=== PATIENT | female | born 1970 | race Two or more races ===

== ENCOUNTER 2019-04-26 17:34 | Emergency (ER) | payer OTHER ==
[~2019-04-26] VITALS: Ht 167.6 cm; Wt 59.9 kg
[~2019-04-26 17:34] MED LIST: IBUPROFEN800 MG PO; ORPH100T PO
[2019-04-26] MEDS ORDERED: LEVSIN/SL0.125 MG SL (22:21)
[2019-04-26] MEDS ORDERED: PEPCID AC20 MG PO (22:21)
== END 2019-04-26 22:50 | disposition home or self-care (01) ==
LOC: ER 17:34
DX: K29.70 Gastritis, unspecified, without bleeding (principal); R10.11 Right upper quadrant pain

== ENCOUNTER 2019-05-07 07:18 | Outpatient (CLI) | payer OTHER ==
[~2019-05-07 07:18] MED LIST changes: +LEVSIN/SL0.125 MG SL; +PEPCID AC20 MG PO
== END 2019-05-07 07:33 | disposition home or self-care (01) ==
LOC: NUCLEAR 07:18
DX: K80.20 Calculus of gallbladder without cholecystitis without obstruction (principal); K81.9 Cholecystitis, unspecified
CPT/HCPCS: 78227; A9537

== ENCOUNTER 2019-09-19 15:05 | Outpatient (CLI) | payer OTHER | END 2019-09-19 15:07 | disposition home or self-care (01) | LOC: RAD 15:05 | DX: R05 Cough (principal) ==

== ENCOUNTER 2022-01-28 07:17 | Outpatient (CLI) | payer OTHER | END 2022-01-28 07:30 | disposition home or self-care (01) | LOC: RAD 07:17 | PROVIDERS: ATTEND Otolaryngology | DX: R05.9 Cough, unspecified (principal); R05.1 Acute cough ==